=== PATIENT | female | born 1955 | race Caucasian/White ===

== ENCOUNTER → 2019-12-18 10:11 | Outpatient (BNVA) | payer OTHER, SELFPAY | PROVIDERS: Visit Provider Emergency Medicine | DX: M25.522 Pain in left elbow (principal); S52.125A Nondisplaced fracture of head of left radius, initial encounter for closed fracture; W19.XXXA Unspecified fall, initial encounter | CPT/HCPCS: 73070; 73080 ==

== ENCOUNTER → 2020-01-12 08:49 | Outpatient (BNVA) | payer OTHER, SELFPAY | PROVIDERS: Visit Provider Orthopaedic Surgery | DX: S52.122A Displaced fracture of head of left radius, initial encounter for closed fracture (principal) | CPT/HCPCS: 73080 ==

== ENCOUNTER → 2020-06-13 12:19 | Outpatient (BNVA) | payer OTHER, SELFPAY | PROVIDERS: Visit Provider Nurse Practitioner Family | DX: M79.671 Pain in right foot (principal); S92.919A Unspecified fracture of unspecified toe(s), initial encounter for closed fracture; X58.XXXA Exposure to other specified factors, initial encounter | CPT/HCPCS: 73630 ==

== ENCOUNTER → 2021-07-28 17:55 | Outpatient (BNVA) | payer OTHER, SELFPAY | PROVIDERS: Visit Provider Emergency Medicine | DX: M54.9 Dorsalgia, unspecified (principal); M79.604 Pain in right leg; N30.01 Acute cystitis with hematuria | CPT/HCPCS: 81000 ==

== ENCOUNTER → 2022-03-03 10:37 | Outpatient (BNVA) | payer OTHER, SELFPAY | PROVIDERS: Visit Provider Emergency Medicine | DX: R30.0 Dysuria (principal); N30.01 Acute cystitis with hematuria; R09.82 Postnasal drip | CPT/HCPCS: 81000 ==

== ENCOUNTER → 2022-07-20 10:10 | Outpatient (BNVA) | payer OTHER, SELFPAY | PROVIDERS: Visit Provider Nurse Practitioner Family | DX: N12 Tubulo-interstitial nephritis, not specified as acute or chronic (principal); R30.9 Painful micturition, unspecified | CPT/HCPCS: 81000; 87086 ==

== ENCOUNTER → 2022-09-07 09:49 | Outpatient (BNVA) | payer OTHER, SELFPAY | PROVIDERS: Visit Provider Nurse Practitioner Family | DX: R30.0 Dysuria (principal); N30.90 Cystitis, unspecified without hematuria | CPT/HCPCS: 81000 ==